=== PATIENT | female | born 1960 | race African-American/Black ===

== ENCOUNTER 2019-11-04 14:51 | Emergency (ER) | payer MEDICAID, OTHER ==
[~2019-11-04] VITALS: Ht 165.1 cm; Wt 86.2 kg
[2019-11-04 15:10] VITALS: BP 146/85
[2019-11-04] MEDS ORDERED: CATHFLO ACTIVASE (ALTEPLASE) 2 MG VIAL IV ONE (15:30)
== END 2019-11-04 20:22 | disposition left against medical advice (07) ==
LOC: EDBD 14:51 → ER 14:51
DX: T82.49XA Other complication of vascular dialysis catheter, initial encounter (principal); F17.210 Nicotine dependence, cigarettes, uncomplicated; E11.22 Type 2 diabetes mellitus with diabetic chronic kidney disease; I12.0 Hypertensive chronic kidney disease with stage 5 chronic kidney disease or end stage renal disease; N18.6 End stage renal disease; E78.5 Hyperlipidemia, unspecified; Z99.2 Dependence on renal dialysis